=== PATIENT | female | born 1955 | race Caucasian/White ===

== ENCOUNTER 2021-09-07 22:46 | Emergency (ER) | payer OTHER ==
[2021-09-07] MEDS ORDERED: Famotidine/PF 20 mg/2ml Vial ONE (23:05)
[2021-09-07] MEDS ORDERED: diphenhydrAMINE 50 MG/ML VIAL ONE (23:05)
[2021-09-07] MEDS ORDERED: methylPREDNISolone Sod Succ/PF 125 MG/2 ML VIAL ONE (23:05)
[2021-09-07] MEDS ORDERED: diphenhydrAMINE 12.5 MG/5 ML UDCUP ONE (23:05)
== END 2021-09-08 01:07 | disposition home or self-care (01) ==
LOC: ERS 22:46
DX: T78.1XXA Other adverse food reactions, not elsewhere classified, initial encounter (principal); L50.0 Allergic urticaria; Z79.899 Other long term (current) drug therapy
CPT/HCPCS: 96374; 96375; J1200; J2930; Q0163; S0028